=== PATIENT | female | born 1940 | race Caucasian/White ===

== ENCOUNTER 2019-05-23 12:21 | Emergency (ER) | payer OTHER ==
[~2019-05-23] VITALS: Ht 167.6 cm; Wt 99.8 kg
[2019-05-23 13:27] LABS: ABSOLUTE NEUTROPHILS 3.3 thou/uL (1.4-8.2); BASOPHILS 0.7 % (0.0-2.0); EOSINOPHILS 4.4 % (0.0-3.0); HEMATOCRIT 39.5 % (37.0-47.0); HEMOGLOBIN 13.5 gm/dL (12.0-15.0); LYMPHOCYTES 14.9 % (24.0-44.0); MCHC 34.2 g/dL (28.0-37.0); MCV 84.7 fL (80.0-100.0); MONOCYTES 6.9 % (1.0-8.0); POLYS 73.1 % (36.0-66.0); RBC 4.66 mil/uL (4.20-5.00); RDW 15.4 % (10.5-14.5); WBC 4.5 thou/uL (4.0-11.0)
[2019-05-23 13:35] LABS: CALCIUM 10.5 mg/dL (8.5-10.1); CREATININE 0.9 mg/dL (0.6-1.0); POTASSIUM 3.7 mmol/L (3.5-5.1)
[2019-05-23 13:41] LABS: ALBUMIN 3.7 g/dL (3.4-5.0); TOTAL BILIRUBIN 0.3 mg/dL (<0.1-1.0); TOTAL PROTEIN 7.2 g/dL (6.4-8.2)
[2019-05-23 13:45] LABS: PROTIME 10.7 Seconds (9.3-11.4)
[2019-05-23 14:10] LABS: PLATELET COUNT 94 thou/uL (150-400)
[2019-05-23] MEDS ORDERED: NORCO 5-325 TA1 EAC1 PO (14:44)
[2019-05-23 15:20] VITALS: BP 126/48
[2019-05-27] MEDS ORDERED: ATENOLOL 50MG T50 M1 PO (09:04)
[2019-05-27] MEDS ORDERED: ONGLYZA5 MG PO (09:05)
[2019-05-27] MEDS ORDERED: KLOR-CON M2020 MEQ PO (09:05)
[2019-05-27] MEDS ORDERED: MAXZIDE-25 MG1 EACH PO (09:05)
[2019-05-27] MEDS ORDERED: METFORMIN HCL500 M2 PO (09:06)
[2019-05-27] MEDS ORDERED: VITAMIN D35000 UNIT PO (09:07)
[2019-05-27] MEDS ORDERED: ROSUVASTATIN CA20 MG PO (09:07)
[2019-05-27] MEDS ORDERED: OMEPRAZOLE20 M1 PO (09:08)
[2019-05-27] MEDS ORDERED: SYNTHROID50 MCG PO (09:08)
[2019-05-27] MEDS ORDERED: LANTUS SOL100 UNIT/1 SUBQ (09:10)
[2019-05-27] MEDS ORDERED: VITAMIN B COMP1 EACH PO (09:10)
[2019-05-27] MEDS ORDERED: HYDROCODON-ACE1 EAC7 PO (09:12)
[2019-05-27] MEDS ORDERED: NORCO 5-325 TA1 EAC1 PO (09:13)
== END 2019-05-23 15:25 | disposition home or self-care (01) ==
LOC: ER 12:21
PROVIDERS: Emergency Medicine
DX: S52.615A Nondisplaced fracture of left ulna styloid process, initial encounter for closed fracture (principal); S52.572A Other intraarticular fracture of lower end of left radius, initial encounter for closed fracture; E11.9 Type 2 diabetes mellitus without complications; E20.9 Hypoparathyroidism, unspecified; I10 Essential (primary) hypertension; Z88.0 Allergy status to penicillin; Z88.2 Allergy status to sulfonamides; Z87.891 Personal history of nicotine dependence; Z88.8 Allergy status to other drugs, medicaments and biological substances; W18.39XA Other fall on same level, initial encounter; Y92.89 Other specified places as the place of occurrence of the external cause; Y93.89 Activity, other specified; Y99.8 Other external cause status

== ENCOUNTER → 2019-05-24 | Outpatient (CLI) | payer OTHER ==
[~2019-05-24] MED LIST: NORCO 5-325 TA1 EAC1 PO
== END ==
LOC: CAT 11:59
DX: S52.572A Other intraarticular fracture of lower end of left radius, initial encounter for closed fracture (principal); S52.615A Nondisplaced fracture of left ulna styloid process, initial encounter for closed fracture; W19.XXXA Unspecified fall, initial encounter; Y93.89 Activity, other specified; Y92.89 Other specified places as the place of occurrence of the external cause; Y99.8 Other external cause status

== ENCOUNTER → 2019-05-31 | Day surgery (SDC) | payer OTHER ==
[~2019-05-31] VITALS: Ht 167.6 cm; Wt 99.8 kg
[~2019-05-31] MED LIST changes: +ATENOLOL 50MG T50 M1 PO; +HYDROCODON-ACE1 EAC7 PO; +KLOR-CON M2020 MEQ PO; +LANTUS SOL100 UNIT/1 SUBQ; +MAXZIDE-25 MG1 EACH PO; +METFORMIN HCL500 M2 PO; +OMEPRAZOLE20 M1 PO; +ONGLYZA5 MG PO; +ROSUVASTATIN CA20 MG PO; +SYNTHROID50 MCG PO; +VITAMIN B COMP1 EACH PO; +VITAMIN D35000 UNIT PO
--- NOTE | ~2019-05-31 | O ---
[facility] [place] [address] OPERATIVE REPORT Name: BELLO RODRIGUES Room #: [facility] [place]#: [id number] Admission: 05/31/19 ������������������ Attend Phys: Dayana Espinoza, Discharge: ������������������ Date of : 36 Report #: [id number] THIS REPORT FOR: //name// CC: Ruthann Espinoza DATE OF SERVICE: 05/31/2019 PREOPERATIVE DIAGNOSES: 1. Left distal radius fracture, intra-articular 3 or more fragments. 2. Left ulnar neck fracture. 3. Intraarticular fragments of the radiocarpal joint. 4. Possible scapholunate ligament injury. POSTOPERATIVE DIAGNOSES: 1. Left distal radius fracture, intra-articular 3 or more fragments. 2. Left radiocarpal fragments. 3. Nondisplaced distal ulna fracture. PROCEDURE PERFORMED: 1. Open reduction and internal fixation of left distal radius fracture, intra-articular 3 or more fragments. 2. Joint exploration with bone fragment excision and nonoperative treatment of the distal ulna fracture. SURGEON: Dayana Espinoza MD ANESTHESIA: General mask anesthesia. ESTIMATED BLOOD LOSS: Minimal. TOURNIQUET TIME: 48 minutes. COMPLICATIONS: None. CONDITION: Stable. DISPOSITION: Recovery room. INDICATIONS: The patient is an 79-year-old female with the above-mentioned diagnosis. She elects for operative treatment. The risks, benefits, alternatives, and complications were discussed including but not limited to infection, damaged to blood or nerves, nonunion, malunion, hardware failure, hardware irritation and stiffness, possible hardware removal. Informed consent was obtained. The correct extremity was identified and labeled by myself after verbal confirmation of the patient as well as visual confirmation and signed [address] [address] OPERATIVE REPORT Name: BELLO RODRIGUES Room #: [facility] [place].R.#: [id number] Admission: 05/31/19 ������������������ Attend Phys: Dayana Espinoza, Discharge: ������������������ Date of : 36 Report #: [id number] informed consent. DESCRIPTION OF PROCEDURE: The patient was brought back to the operative room and placed on the operating table in supine position. She received preoperative antibiotics. Tourniquet was placed over padding on the patient's left upper extremity. Left lower extremity was sterilely prepped and draped in usual fashion. Final timeout was taken to verify correct patient, operative procedure, operative site, all concurred. The arm was elevated, exsanguinated and tourniquet inflated. Volar approach is done at the distal radius over the FCR tendon. Dissection was carried down through subcutaneous tissue with tenotomy scissors, the sheath was incised. The subsheath was incised. Volar contents were retracted ulnarly and the radial aspect of the pronator quadratus was incised. The periosteum was elevated off the fracture. Fracture was easily identified, cleaned of clot and debris and provisionally reduced using fluoroscopic guidance, I was able to reduce it quite nicely. Next, a standard Arthrex volar distal radius locking plate was applied to the bone. It was found to be too large, too wide, and so a narrow was chosen. It was applied to the bone and positioned and using fluoroscopic guidance was placed on to the bone with the gliding hole cortical screw. This was checked under fluoroscopy. Once it was adjusted, the distal locking screws were drilled, measured, and the appropriate size screws were placed. The fixation was felt to be very stable. The DRUJ was assessed. It was stable. The distal ulna fracture was still nondisplaced. There was no DISI deformity and with radioulnar deviation, there was no significant widening noted at the SL interval. At this point, a volar capsulotomy was performed and the volar bone fragments were removed using a small rongeur as well as suction and irrigation. AP, lateral tilt, and live fluoroscopic views showed good position of the distal radius fracture and appropriate hardware position. The wound was thoroughly irrigated. The capsulotomy was closed with 4-0 Ethibond suture. The pronator quadratus was reapproximated over the plate under the course of the FPL with a 4-0 Vicryl suture. The skin was closed with 4-0 nylon suture. Wound was dressed with Adaptic and sterile gauze. She was placed in a bulky dressing and a sugar tong splint in neutral forearm rotation. All fingers were pink with brisk cap refill at the conclusion of the case after deflation of tourniquet. All sponge and needle counts were correct. The patient was transferred to postoperative recovery room in stable condition. ��������������������������������������������� ���������������������������������������� By: ��������������������������������������������� 0926 1030 Dayana Espinoza MD /sydney
[2019-05-31 07:00] VITALS: BP 130/52
[2019-05-31 09:29] VITALS: BP 130/52
--- NOTE | 2019-06-01 07:58 | EKG ---
[place] [address] [facility] [place] [address] ELECTROCARDIOGRAM REPORT Name: BELLO RODRIGUES Room #: [facility].#: [id number] ������������������ Admission: 05/31/19 ������������������ Attend Phys: Dayana Espinoza, Discharge: ������������������ Date of : 36 Report #: [id number] ����������������������������������������������������������������� [id number] THIS REPORT FOR: //name// [facility] Test Date: 2019-05-31 Test Time: 06:38:50 Pat Name: BELLO RODRIGUES Department: Room: Gender: F [employer] Treater: WALI : 1940 Requested By: Dayana Espinoza Order Number: [id number] MD: Altaf Mendez Measurements Intervals [place] Rate: 70 P: -19 DC: 181 QRS: -12 QRSD: 143 T: 3 QT: 469 QTc: 507 Interpretive Statements Sinus rhythm Right bundle branch block Prolonged QT interval No previous ECG available for comparison Electronically Signed On 06-01-2019 7:57:51 CDT by Altaf Mendez [email or web address] ��������������������������������������������� <ELECTRONICALLY SIGNED> ���������������������������������������� By: Altaf Mendez MD, [facility] ��������������������������������������������� 06/01/19 0757 0638 7 Altaf Mendez MD, FACC /EPI
== END | disposition home or self-care (01) ==
LOC: OR 05:53
DX: S52.572A Other intraarticular fracture of lower end of left radius, initial encounter for closed fracture (principal); S52.602A Unspecified fracture of lower end of left ulna, initial encounter for closed fracture; I10 Essential (primary) hypertension; E11.9 Type 2 diabetes mellitus without complications; E78.5 Hyperlipidemia, unspecified; G47.30 Sleep apnea, unspecified; K21.9 Gastro-esophageal reflux disease without esophagitis; E03.9 Hypothyroidism, unspecified; E21.3 Hyperparathyroidism, unspecified; Z98.41 Cataract extraction status, right eye; Z85.42 Personal history of malignant neoplasm of other parts of uterus; Z98.42 Cataract extraction status, left eye; Z79.4 Long term (current) use of insulin; Z90.49 Acquired absence of other specified parts of digestive tract; Z79.899 Other long term (current) drug therapy; Z90.710 Acquired absence of both cervix and uterus; Z88.0 Allergy status to penicillin; Z87.891 Personal history of nicotine dependence; Z88.2 Allergy status to sulfonamides; Z88.8 Allergy status to other drugs, medicaments and biological substances; X58.XXXA Exposure to other specified factors, initial encounter; Y93.89 Activity, other specified; Y92.89 Other specified places as the place of occurrence of the external cause; Y99.8 Other external cause status
CPT/HCPCS: 50010; 50101; 50386; 55430; 56526; 57006; 57091; 62110; 62900; 70005